=== PATIENT | male | born 1975 | race Caucasian/White ===

== ENCOUNTER 2017-12-21 18:48 | Emergency (ER) | payer SELFPAY ==
[~2017-12-21] VITALS: Ht 167.6 cm; Wt 60.0 kg
[2017-12-21] MEDS ORDERED: ONDANSETRON 2MG/ML, 2ML ONE (19:13)
[2017-12-21] MEDS ORDERED: MORPHINE SULFATE 4 MG/ML, 1ML ONE (19:13)
[2017-12-21] MEDS ORDERED: KETOROLAC 30 MG/1 ML ONE (19:13)
[2017-12-21 19:22] LABS: BASOPHILS # (AUTO) 0.05 x10^3/uL (0-0.1); BASOPHILS % (AUTO) 1 % (0-1); EOSINOPHILS # (AUTO) 0.11 x10^3/uL (0-0.4); EOSINOPHILS % (AUTO) 2 % (1-7); LYMPHOCYTES # (AUTO) 1.54 x10^3/uL (1-3.4); LYMPHOCYTES % (AUTO) 21 % (22-44); MD NO; MEAN CORPUSCULAR HEMOGLOBIN 29.6 pg (27.5-34.5); MEAN CORPUSCULAR HGB CONC 33.1 g/dL (33.2-36.2); MEAN CORPUSCULAR VOLUME 89.4 fL (81-97); MEAN PLATELET VOLUME 9.1 fL (7.4-10.4); MONOCYTES # (AUTO) 0.74 x10^3/uL (0.2-0.8); MONOCYTES % (AUTO) 10 % (2-9); NEUTROPHILS # (AUTO) 4.91 x10^3/uL (1.8-6.8); NEUTROPHILS % (AUTO) 67 % (42-75); PLATELET COUNT 325 x10^3/uL (130-400); RED BLOOD COUNT 5.53 x10^6/uL (4.38-5.82); RED CELL DISTRIBUTION WIDTH 14.4 % (9.4-14.8)
[2017-12-21] MEDS ORDERED: KETOROLAC 30 MG/1 ML IVPush ONE (19:30)
[2017-12-21] MEDS ORDERED: MORPHINE SULFATE 4 MG/ML, 1ML IVPush PRN (19:30)
[2017-12-21] MEDS ORDERED: SODIUM CHLORIDE 0.9% 1,000ML IV ONE (19:30)
[2017-12-21] MEDS ORDERED: ONDANSETRON 2MG/ML, 2ML IVPush ONE (19:30)
[2017-12-21] MEDS ORDERED: SODIUM CHLORIDE FLUSH 10ML SYR IVF ONE (19:30)
[2017-12-21 19:31] LABS: ALBUMIN 3.6 g/dL (3.4-5.0); ANION GAP 7 mmol/L (5-15); CALCIUM 8.9 mg/dL (8.5-10.1); CHLORIDE 100 mmol/L (98-107); CREATININE 1.05 mg/dL (0.7-1.3)
[2017-12-21] MEDS ORDERED: SODIUM CHLORIDE 0.9% 1,000ML IVBOLUS ONE (21:30)
[2017-12-21 22:43] VITALS: BP 124/75
[2017-12-21 22:58] LABS: CULTURE INDICATED? YES; MICROSCOPIC INDICATED
== END 2017-12-22 00:29 | disposition home or self-care (01) ==
LOC: ED 21:17
DX: R10.31 Right lower quadrant pain (principal); R11.2 Nausea with vomiting, unspecified; F17.200 Nicotine dependence, unspecified, uncomplicated
CPT/HCPCS: 36415; 74176; 80048; 81001; 82040; 85025; 87086; 96361; 96374; 96375; 99285; J1885; J2405; J7030; 51701; P9612

== ENCOUNTER 2020-04-14 12:10 | Emergency (ER) | payer SELFPAY ==
[~2020-04-14] VITALS: Ht 167.6 cm; Wt 62.8 kg
--- NOTE | 2020-04-14 12:42 | NUR ---
C/O UPPER JAW PAIN X 2-3 WEEKS. PAIN WORSE W/ BITING DOWN AND COLD FOOD. LAST DDS CHECK-UP UNKNOWN TO PT; NO DENTIST. TYELNOL TAKEN FOR PAIN; LAST DOSE LAST NOC.
[2020-04-14 12:48] VITALS: BP 119/73
== END 2020-04-14 13:16 | disposition home or self-care (01) ==
LOC: ED 13:00
DX: K02.9 Dental caries, unspecified (principal); K08.89 Other specified disorders of teeth and supporting structures; F17.210 Nicotine dependence, cigarettes, uncomplicated
CPT/HCPCS: 99283; 99406

== ENCOUNTER 2020-07-20 15:23 | Emergency (ER) | payer SELFPAY ==
[~2020-07-20] VITALS: Ht 167.6 cm; Wt 52.6 kg
[2020-07-20] MEDS ORDERED: ONDANSETRON 2MG/ML, 2ML ONE (15:49)
[2020-07-20] MEDS ORDERED: MORPHINE SULFATE 4 MG/ML, 1ML ONE (15:51)
--- NOTE | 2020-07-20 15:55 | NUR ---
pt in bed. piv started.
[2020-07-20] MEDS ORDERED: MORPHINE SULFATE 4 MG/ML, 1ML IVPush PRN (16:00)
[2020-07-20] MEDS ORDERED: SODIUM CHLORIDE FLUSH 10ML SYR IVF ONE (16:00)
[2020-07-20] MEDS ORDERED: ACETAMINOPHEN 500 MG TABLET PO ONE (16:00)
[2020-07-20] MEDS ORDERED: ONDANSETRON 2MG/ML, 2ML IVPush ONE (16:00)
[2020-07-20] MEDS ORDERED: LIDOCAINE-MPF 1%, 5ML ONE (16:58)
[2020-07-20] MEDS ORDERED: BUPIVACAINE 0.25% ONE (16:58)
--- NOTE | 2020-07-20 17:06 | NUR ---
pt to ct now. per provider local numbing with medication and attmept to reduce is poc per ortho. pt to be splinted and discharged. unable at this time to update pt on poc due to being in ct
[2020-07-20] MEDS ORDERED: LIDOCAINE-MPF 1%, 5ML INFIL ONE (17:30)
[2020-07-20] MEDS ORDERED: BUPIVACAINE/PF-EPI 0.25% 1:200K SQ ONE (17:30)
[2020-07-20 18:23] VITALS: BP 138/96
== END 2020-07-20 19:01 | disposition home or self-care (01) ==
LOC: ED 18:00
DX: S62.346A Nondisplaced fracture of base of fifth metacarpal bone, right hand, initial encounter for closed fracture (principal); S63.054A Dislocation of other carpometacarpal joint of right hand, initial encounter; R20.2 Paresthesia of skin; X58.XXXA Exposure to other specified factors, initial encounter; Y93.89 Activity, other specified; Y92.89 Other specified places as the place of occurrence of the external cause; Y99.8 Other external cause status
CPT/HCPCS: 26605; 73130; 73200; 96374; 96375; 99284; J2270; J2405